=== PATIENT | male | born 1975 | race Caucasian/White ===

== ENCOUNTER 2019-02-05 14:44 | Emergency (ER) | payer MEDICAID, SELFPAY ==
[2019-02-05 14:49] VITALS: BP 137/84; PULSE 82; RESP 17; TEMP 37.2; O2SAT 99; BMI 21.7
--- NOTE | 2019-02-05 15:24 | ED.DCSUM_ITS ---
- ER Visit Summary Date of Service: 02/05/19 Chief Complaint: [] Asking to be treated for hep C History of Present Illness: The patient is a 43 M [] diagnosed with hep C about 2 months ago by [facility] physicians indicates his health condition has been stable, he presents today asking to be treated for hep C he has no complaints of head neck chest or abdominal pain he is scheduled to see sleep clinic physicians next week Physical Examination: [] Vital signs within normal range General, no distress resting comfortably HEENT is generally unremarkable The neck is supple no adenopathy Cardiovascular, regular rate and rhythm Lungs, clear bilateral Abdomen, soft nontender Extremities, no clubbing cyanosis or edema Neurologic, awake alert answering questions appropriately moving all 4 extremities Test Results: [] Emergency Department Course and Treatment: [] Explained to the patient he should follow-up with his physicians for that type of therapy, as this is unavailable from the emergency department, he understands and agrees Treatment Plan: [] Disposition: [] Home stable Impression: [] History of hep C This note was generated with [employer] dictation software. It may contain incorrect words, spelling, and punctuation that were not noted in review of the chart prior to signing ED Disposition - Plan for ED Patient: Referrals: [facility] Doctor,Out of [Primary Care Provider] -
--- NOTE | 2019-02-05 15:24 | ED.DEP ---
ED Disposition - Plan for ED Patient: Referrals: [facility],Out of [Primary Care Provider] - Additional Instructions: Follow-up with your doctors outpatient providers for treatment of hep C
--- NOTE | 2019-02-05 15:29 | ED.DEP ---
ED Disposition - Plan for ED Patient: Instructions: Treating Hepatitis C (HCV) Referrals: [facility],Out of [Primary Care Provider] - Additional Instructions: Follow-up with your doctors outpatient providers for treatment of hep C
[2019-02-05 15:56] VITALS: PULSE 88; RESP 16; O2SAT 98
== END 2019-02-05 16:00 | disposition home or self-care (01) ==
PROVIDERS: Emergency Provider Emergency Medicine
DX: B19.20 Unspecified viral hepatitis C without hepatic coma (principal)
CPT/HCPCS: 99282